=== PATIENT | female | born 1990 | race Caucasian/White ===

== ENCOUNTER 2016-12-16 23:14 | Emergency (ER) | payer SELFPAY ==
[~2016-12-16] VITALS: Ht 157.5 cm; Wt 103.0 kg
[2016-12-16 23:23] VITALS: BP 144/74
--- NOTE | 2016-12-17 00:31 | NUR ---
TO ER BED 7
--- NOTE | 2016-12-17 00:41 | NUR ---
Patient being evaluated by physician at bedside.
--- NOTE | 2016-12-17 00:47 | NUR ---
PATIENT PRESENTS TO ED WITH C/O RT EAR PAIN W/DRAINAGE . PT DENIES N/V/D; SKIN IS PINK/WARM/DRY; AAOX4 WITH EVEN AND STEADY GAIT; LUNGS CLEAR BL; HR EVEN AND REGULAR; PT DENIES ANY FEVER, CP, SOB, OR COUGH AT THIS TIME; PATIENT STATES PAIN OF 2/10 AT THIS TIME; VSS; PATIENT POSITIONED FOR COMFORT; HOB ELEVATED; BEDRAILS UP X2; BED DOWN. ER MD MADE AWARE OF PT STATUS.
[2016-12-17 00:51] VITALS: BP 144/74
--- NOTE | 2016-12-17 00:51 | NUR ---
Patient discharged with v/s stable. Written and verbal after care instructions given and explained. Patient verbalized understanding. Ambulatory with steady gait. All questions addressed prior to discharge. Advised to follow up with PMD.
--- NOTE | 2016-12-17 00:51 | NUR ---
Patient discharged with v/s stable. Written and verbal after care instructions given and explained. Patient alert, oriented and verbalized understanding of instructions. Ambulatory with steady gait. All questions addressed prior to discharge. ID band removed. Patient advised to follow up with PMD. Rx of DEXTROMETHROPHAN HYDROBROMIDE/PROMETHAZINE 15/6.25MG/5ML, AMOXICILLIN 500 MG, CIPRODEX 0.3%-0.1% OTIC SUSPENSION given. Patient educated on indication of medication including possible reaction and side effects. Opportunity to ask questions provided and answered.
== END 2016-12-17 00:51 | disposition home or self-care (01) ==
LOC: MED 23:14
DX: H66.91 Otitis media, unspecified, right ear (principal); R03.0 Elevated blood-pressure reading, without diagnosis of hypertension; J02.9 Acute pharyngitis, unspecified; R05 Cough
CPT/HCPCS: 99283

== ENCOUNTER 2016-12-17 10:02 | Emergency (ER) | payer MEDICAID ==
[~2016-12-17] VITALS: Ht 157.5 cm; Wt 103.0 kg
--- NOTE | 2016-12-17 10:02 | NUR ---
0920--Patient was BIBA and taken to L&D.
--- NOTE | 2016-12-17 10:02 | NUR ---
Patient was brought back from L&D to lobby waiting to be triaged.
--- NOTE | 2016-12-17 10:32 | NUR ---
Patient ambulated to bed 04.
[2016-12-17 10:37] VITALS: BP 117/63
--- NOTE | 2016-12-17 10:40 | NUR ---
PT PRESENTS TO ER W/C/O VAGINAL BLEEDING. PT STATES SHE IS 41 WEEKS , AND HAS A SCHEDULED INDUCTION TODAY AT 1400. PT ASSESSED BY L&D, NO HEART TONES, RN UNABLE TO PALPATE FUNDUS. PT STATES HER LMP WAS 04/13/16. DENIES N/V/D; SKIN IS PINK/WARM/DRY; AAOX4 WITH EVEN AND STEADY GAIT; LUNGS CLEAR BL; HR EVEN AND REGULAR; PT DENIES ANY FEVER, CP, SOB, OR COUGH AT THIS TIME; PATIENT STATES PAIN OF 7/10 AT THIS TIME; VSS; PATIENT POSITIONED FOR COMFORT; HOB ELEVATED; BEDRAILS UP X2; BED DOWN. ER MD MADE AWARE OF PT STATUS.
--- NOTE | 2016-12-17 10:45 | NUR ---
Dr. Lim evaluating patient at bedside.
[2016-12-17 11:06] LABS: BASOPHILS # (AUTO) 0.2 K/uL (0.00-0.22); BASOPHILS % (AUTO) 1.5 % (0.0-2.0); EOSINOPHILS # (AUTO) 0.1 K/uL (0-0.4); HEMATOCRIT 41.8 % (36-48); HEMOGLOBIN 13.8 g/dL (12.0-16.0); LYMPHOCYTES # (AUTO) 1.8 K/uL (2.5-16.5); LYMPHOCYTES % (AUTO) 15.6 % (20.5-51.1); MEAN CORPUSCULAR HEMOGLOBIN 28 pg (27-31); MEAN CORPUSCULAR HGB CONC 33 g/dL (33-37); MEAN CORPUSCULAR VOLUME 85 fL (80-94); MONOCYTES # (AUTO) 0.4 K/uL (0.8-1.0); MONOCYTES % (AUTO) 3.2 % (1.7-9.3); NEUTROPHILS # (AUTO) 9.1 K/uL (1.8-7.7); NEUTROPHILS % (AUTO) 78.7 % (42.2-75.2); PLATELET COUNT (AUTO) 310 K/uL (140-450); RED CELL DISTRIBUTION WIDTH 12.6 % (11.6-13.7); WHITE BLOOD COUNT (AUTO) 11.6 K/uL (4.8-10.8)
[2016-12-17 11:18] LABS: ANION GAP 16.6 (8-16); CARBON DIOXIDE 23.1 mmol/L (21-32); CREATININE 0.8 mg/dL (0.6-1.3); POTASSIUM 3.7 mmol/L (3.5-5.1)
[2016-12-17 11:24] LABS: TOTAL BILIRUBIN 0.4 mg/dL (0.0-1.0)
--- NOTE | 2016-12-17 11:27 | NUR ---
US at bedside.
[2016-12-17 11:50] LABS: APPEARANCE,URINE HAZY (CLEAR); BILIRUBIN,URINE NEGATIVE (NEGATIVE); BLOOD, URINE NEGATIVE (NEGATIVE); COLOR,URINE YELLOW (YELLOW); LEUKOCYTE ESTERASE ,URINE TRACE (NEGATIVE); NITRITE, URINE NEGATIVE (NEGATIVE); PH,URINE 5.5 (5.0-9.0); UGLUCOSE NEGATIVE (NEGATIVE)
[2016-12-17 11:54] LABS: RBC,URINE 0-2 /HPF (0-5)
[2016-12-17 13:15] VITALS: BP 137/80
== END 2016-12-17 13:15 | disposition home or self-care (01) ==
LOC: MED 10:02 → EDSTATUS 10:02 → MED 13:15
DX: N93.8 Other specified abnormal uterine and vaginal bleeding (principal); N39.0 Urinary tract infection, site not specified; R03.0 Elevated blood-pressure reading, without diagnosis of hypertension
CPT/HCPCS: 36415; 76830; 76856; 80053; 81001; 81025; 85025; 87210; 99285; Q0092

== ENCOUNTER 2019-06-06 10:21 | Emergency (ER) | payer SELFPAY ==
[~2019-06-06] VITALS: Ht 157.5 cm; Wt 103.4 kg
[2019-06-06 10:53] VITALS: BP_SYST 89
--- NOTE | 2019-06-06 10:57 | NUR ---
WAIT AT LOBBY
--- NOTE | 2019-06-06 12:26 | NUR ---
APT C/O PRODUCTIVE COUGH W/ GREENISH PHLEGM FOR 6 DAYS, SUBJECTIVE FEVER FOR 3 DAYS, AND SORE THROAT FOR 2 DAYS. +2 EDEMA W/ ERYTHEMA ON THROAT BILATERAL NOTICED ON INSPECTION. LUNGS AUSCULTATED CLEAR BILATERALLY. FEVER 100F UPON ASSESSMENT. PATIENT STATES PAIN OF 8/10 AT THIS TIME; VSS; PATIENT POSITIONED FOR COMFORT; HOB ELEVATED; BEDRAILS UP X1; BED DOWN. ER MD MADE AWARE OF PT STATUS.
[2019-06-06] MEDS ORDERED: IBUPROFEN 600 MG TAB PO ONE (12:35)
[2019-06-06] MEDS ORDERED: DEXAMETHASONE 10 MG/ML VIAL IM ONE (12:35)
--- NOTE | 2019-06-06 12:53 | NUR ---
STREP SWAP SAMPLE OBTAINED AND WALKED TO THE LAB. PT TOLERATED WELL.
--- NOTE | 2019-06-06 13:27 | NUR ---
XRAY IS AT BEDSIDE.
[2019-06-06 13:57] VITALS: BP 122/78
--- NOTE | 2019-06-06 13:57 | NUR ---
Patient discharged with v/s stable. Written and verbal after care instructions given and explained. Patient alert, oriented and verbalized understanding of instructions. Ambulatory with steady gait. All questions addressed prior to discharge. ID band removed. Patient advised to follow up with PMD. Rx of Ibuprofen and Penicillin given. Patient educated on indication of medication including possible reaction and side effects. Opportunity to ask questions provided and answered.
== END 2019-06-06 13:57 | disposition home or self-care (01) ==
LOC: MED 10:21
DX: J02.0 Streptococcal pharyngitis (principal)
CPT/HCPCS: 71045; 87081; 96372; 99284; J1100